=== PATIENT | female | born 1990 ===

== ENCOUNTER 2017-04-16 18:11 | Emergency (ER) | payer MEDICAID, OTHER ==
[2017-04-16 18:18] VITALS: BP 122/80; PULSE 88; RESP 20; TEMP 96.8; O2SAT 99
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
== END 2017-04-16 19:03 | disposition home or self-care (01) ==
LOC: H.ER 18:11
DX: M54.9 Dorsalgia, unspecified (principal); V43.52XA Car driver injured in collision with other type car in traffic accident, initial encounter; Y92.410 Unspecified street and highway as the place of occurrence of the external cause
CPT/HCPCS: 81025; 96372; 99281; J1885